=== PATIENT | female | born 1955 | race African-American/Black ===

== ENCOUNTER 2019-11-24 00:07 | Inpatient (IN) ==
[2019-11-24] MEDS ORDERED: SODIUM CHLORIDE 0.9% 1,000 ML IV STA (00:55)
[2019-11-24] MEDS ORDERED: KETOROLAC 30 MG/1 ML VIAL IV STA (00:55)
[2019-11-24] MEDS ORDERED: AZITHROMYCIN INJ 500 MG in SODIUM CHLORIDE 0.9% 250 ML IV STA (00:55)
[2019-11-24] MEDS ORDERED: methylPREDNISolone SOD SUC 125 MG/2 ML VIAL IV STA (00:55)
[2019-11-24] MEDS ORDERED: cefTRIAXone 1,000 MG in SODIUM CHLORIDE 0.9% 100 ML IV STA (01:36)
[2019-11-24 02:09] LABS: Basophils % 0.2 % (0.0-0.8); Hematocrit 34.3 VOL% (35.7-47.0); Hemoglobin 11.2 GM/DL (12.0-16.0); Hgb & Hct Comparison OK; Immature Granulocytes % 0.6 %; Immature Granulocytes Absolute 0.04 #; Immature Platelet Fraction 10.9 % (0.0-7.0); Lymphocytes # 1.8 10*3/uL (1.4-4.0); Lymphocytes % 27.1 % (21.3-54.2); Mean Corpuscular HGB Conc 32.7 GM/DL (32-36); Mean Corpuscular Hemoglobin 28 PG (27-34); Mean Corpuscular Volume 87.1 FL (87-102); Monocytes # 0.3 10*3/uL (0.11-0.8); Monocytes % 4.3 % (1.7-12.7); Neutrophils # 4.5 10*3/uL (1.4-7.4); Neutrophils % 67.8 % (38.7-73.9); Platelet Count 123 T/CUMM (130-400)
[2019-11-24 02:15] LABS: D-Dimer <= 0.5 MG/L FEU (<=0.5); PT Patient Result 10.4 SECS (9.8-11.9)
[2019-11-24 02:24] LABS: Alanine Aminotransferase 38 U/L (13-56); Albumin/Globulin Ratio 0.7 RATIO (1.1-2.2); Alkaline Phosphatase 73 U/L (45-117); Anion Gap 6.2 MMOL/L (5.0-15.0); Aspartate Amino Transferase 64 U/L (0-37); Blood Urea Nitrogen 11 MG/DL (7-18); C-Reactive Protein Inflamm 4.22 MG/DL (0-0.32); Carbon Dioxide 29 MMOL/L (21-32); Chloride 101 MMOL/L (98-107); Creatine Kinase MB < 1.0 NG/ML (0.5-3.6); Estimated Glom Filtration Rate 102 ML/MIN; Globulin 4.1 G/DL (2.3-3.5); Lactate Dehydrogenase 640 U/L (84-246); Osmolality,Calculated 265.7 MOS/KG (273-304); Potassium 5.2 MMOL/L (3.5-5.1); Sodium 131 MMOL/L (136-145); Troponin I < 0.015 NG/ML (0.00-0.045)
[2019-11-24] MEDS ORDERED: DOCUSATE SODIUM 100 MG CAPSULE PO PRN (04:25)
[2019-11-24] MEDS ORDERED: ONDANSETRON 4 MG/2 ML VIAL IV PRN (04:25)
[2019-11-24] MEDS ORDERED: DEXTROSE 50% 25 GM/50 ML VIAL IV PRN (04:25)
[2019-11-24] MEDS ORDERED: GLUCAGON 1 MG VIAL IM PRN (04:25)
[2019-11-24] MEDS ORDERED: hydrALAZINE 20 MG/1 ML VIAL IV PRN (04:25)
[2019-11-24] MEDS: SODIUM CHLORIDE 0.9% 1,000 ML IV SCH (05:05)
[2019-11-24] MEDS ORDERED: SODIUM POLYSTYRENE SULFATE 15 GM/60 ML BOTTLE PO ONE (09:00)
[2019-11-24] MEDS: CETIRIZINE 10 MG TABLET PO SCH (09:08)
[2019-11-24] MEDS: INSULIN LISPRO 100 UNIT/ML SUBCUT SCH ×4 (09:08→21:27)
[2019-11-24] MEDS: FAMOTIDINE 20 MG TABLET PO SCH ×2 (09:08→21:27)
[2019-11-24] MEDS: ENOXAPARIN 40 MG/0.4 ML SYRINGE SUBCUT SCH (09:08)
[2019-11-24 16:29] LABS: Apearance,Urine CLOUDY (Clear); Bilirubin,Urine Negative (Negative); Blood, Urine Negative (Negative); Glucose,Urine (UA) >=500 mg/dL (Negative); Ketones,Urine Negative (Negative); Nitrite,Urine Negative (Negative); Protein,Urine Negative; Urine Color Yellow (Yellow); Urine Specific Gravity 1.023 (1.001-1.035); Urine Urobilinogen < 2.0 EU/DL (0.2-1.0)
[2019-11-24 16:30] LABS: Culture Indicated,Urine Not Indicated
[2019-11-24] MEDS: ALBUTEROL INHALER 18 GM INH SCH ×2 (18:06)
[2019-11-24] MEDS: ACETAMINOPHEN 325 MG TABLET PO PRN (19:55)
[2019-11-25] MEDS ORDERED: AZITHROMYCIN INJ 500 MG in SODIUM CHLORIDE 0.9% 250 ML IV SCH
[2019-11-25] MEDS: ALBUTEROL INHALER 18 GM INH SCH ×4 (01:30→19:30)
[2019-11-25 07:06] LABS: Anion Gap 13.2 MMOL/L (5.0-15.0); Osmolality,Calculated 286.3 MOS/KG (273-304); Potassium 3.2 MMOL/L (3.5-5.1)
[2019-11-25 07:44] LABS: Basophils % 0.1 % (0.0-0.8); Hematocrit 35.4 VOL% (35.7-47.0); Hemoglobin 11.4 GM/DL (12.0-16.0); Hgb & Hct Comparison OK; Immature Granulocytes % 0.7 %; Immature Granulocytes Absolute 0.09 #; Lymphocytes # 2.4 10*3/uL (1.4-4.0); Lymphocytes % 19.3 % (21.3-54.2); Mean Corpuscular HGB Conc 32.2 GM/DL (32-36); Mean Corpuscular Hemoglobin 29 PG (27-34); Mean Corpuscular Volume 88.5 FL (87-102); Monocytes # 0.6 10*3/uL (0.11-0.8); Neutrophils # 9.1 10*3/uL (1.4-7.4); Neutrophils % 74.9 % (38.7-73.9); Platelet Count 211 T/CUMM (130-400)
[2019-11-25] MEDS: SODIUM CHLORIDE 0.9% 1,000 ML IV SCH ×3 (07:47→22:51)
[2019-11-25] MEDS: cefTRIAXone 1,000 MG in SYRINGE 1 EACH IV SCH (08:57)
[2019-11-25] MEDS: FAMOTIDINE 20 MG TABLET PO SCH ×2 (08:57→20:21)
[2019-11-25] MEDS: CETIRIZINE 10 MG TABLET PO SCH (08:57)
[2019-11-25] MEDS: AZITHROMYCIN 250 MG TABLET PO SCH (08:57)
[2019-11-25] MEDS: ENOXAPARIN 40 MG/0.4 ML SYRINGE SUBCUT SCH (08:57)
[2019-11-25] MEDS: INSULIN LISPRO 100 UNIT/ML SUBCUT SCH ×4 (08:57→20:22)
[2019-11-25] MEDS: ACETAMINOPHEN 325 MG TABLET PO PRN ×4 (08:57→20:21)
[2019-11-25] MEDS ORDERED: POTASSIUM CHLORIDE 20 MEQ TABLET PO ONE (12:00)
[2019-11-26] MEDS: ACETAMINOPHEN 325 MG TABLET PO PRN ×5 (00:37→20:59)
[2019-11-26] MEDS: ALBUTEROL INHALER 18 GM INH SCH ×4 (00:38→18:28)
[2019-11-26 05:56] LABS: Basophils % 0.1 % (0.0-0.8); Hematocrit 31.8 VOL% (35.7-47.0); Hemoglobin 10.3 GM/DL (12.0-16.0); Hgb & Hct Comparison OK; Immature Granulocytes % 0.8 %; Immature Granulocytes Absolute 0.07 #; Lymphocytes # 2.3 10*3/uL (1.4-4.0); Lymphocytes % 27.1 % (21.3-54.2); Mean Corpuscular HGB Conc 32.4 GM/DL (32-36); Mean Corpuscular Hemoglobin 28 PG (27-34); Mean Corpuscular Volume 86.6 FL (87-102); Monocytes # 0.4 10*3/uL (0.11-0.8); Neutrophils # 5.7 10*3/uL (1.4-7.4); Platelet Count 209 T/CUMM (130-400)
[2019-11-26 06:30] LABS: Anion Gap 8.1 MMOL/L (5.0-15.0); Osmolality,Calculated 279.5 MOS/KG (273-304); Potassium 3.1 MMOL/L (3.5-5.1)
[2019-11-26] MEDS: INSULIN LISPRO 100 UNIT/ML SUBCUT SCH ×4 (08:00→20:59)
[2019-11-26] MEDS: ENOXAPARIN 40 MG/0.4 ML SYRINGE SUBCUT SCH (09:00)
[2019-11-26] MEDS: FAMOTIDINE 20 MG TABLET PO SCH ×2 (09:29→20:59)
[2019-11-26] MEDS: CETIRIZINE 10 MG TABLET PO SCH (09:30)
[2019-11-26] MEDS: AZITHROMYCIN 250 MG TABLET PO SCH (09:30)
[2019-11-26] MEDS: cefTRIAXone 1,000 MG in SYRINGE 1 EACH IV SCH (09:30)
[2019-11-26] MEDS: SODIUM CHLORIDE 0.9% 1,000 ML IV SCH (12:23)
[2019-11-27] MEDS: ALBUTEROL INHALER 18 GM INH SCH ×4 (01:00→18:30)
[2019-11-27] MEDS: ACETAMINOPHEN 325 MG TABLET PO PRN ×2 (01:03→13:00)
[2019-11-27] MEDS: SODIUM CHLORIDE 0.9% 1,000 ML IV SCH (01:05)
[2019-11-27] MEDS: INSULIN LISPRO 100 UNIT/ML SUBCUT SCH ×4 (07:32→21:22)
[2019-11-27] MEDS: ENOXAPARIN 40 MG/0.4 ML SYRINGE SUBCUT SCH (08:22)
[2019-11-27] MEDS: cefTRIAXone 1,000 MG in SYRINGE 1 EACH IV SCH (08:23)
[2019-11-27] MEDS: AZITHROMYCIN 250 MG TABLET PO SCH (08:23)
[2019-11-27] MEDS: FAMOTIDINE 20 MG TABLET PO SCH ×2 (08:23→21:23)
[2019-11-27] MEDS: CETIRIZINE 10 MG TABLET PO SCH (08:27)
[2019-11-27 09:19] LABS: Basophils % 0.2 % (0.0-0.8); Eosinophils % 0.5 % (0.00-10.9); Hematocrit 33.5 VOL% (35.7-47.0); Hemoglobin 10.6 GM/DL (12.0-16.0); Hgb & Hct Comparison OK; Immature Granulocytes % 1.2 %; Lymphocytes # 2.4 10*3/uL (1.4-4.0); Lymphocytes % 29.3 % (21.3-54.2); Mean Corpuscular HGB Conc 31.6 GM/DL (32-36); Mean Corpuscular Hemoglobin 28 PG (27-34); Mean Corpuscular Volume 89.6 FL (87-102); Monocytes # 0.5 10*3/uL (0.11-0.8); Monocytes % 5.9 % (1.7-12.7); Neutrophils # 5.2 10*3/uL (1.4-7.4); Neutrophils % 62.9 % (38.7-73.9); Platelet Count 239 T/CUMM (130-400)
[2019-11-27 09:22] LABS: Anion Gap 8.2 MMOL/L (5.0-15.0); Osmolality,Calculated 276.4 MOS/KG (273-304); Potassium 3.2 MMOL/L (3.5-5.1)
[2019-11-27 09:45] LABS: Band Neutrophils 6 % (0-10); Lymphocytes 29 % (20-55); Metamyelocytes 1 %; Monocytes 4 % (2-15); Platelet Estimate Normal; Segmented Neutrophils 60 % (50-85); Total Cells Counted 100
[2019-11-27] MEDS ORDERED: POTASSIUM CHLORIDE 20 MEQ TABLET PO ONE (10:18)
[2019-11-27] MEDS: LISINOPRIL/HCTZ 20-12.5 MG TABLET PO SCH (10:40)
[2019-11-27] MEDS: ATORVASTATIN 40 MG TABLET PO SCH (10:40)
[2019-11-27] MEDS: amLODIPine 5 MG TABLET PO SCH (10:40)
[2019-11-27] MEDS: ASPIRIN EC 81 MG TABLET PO SCH (10:40)
[2019-11-27] MEDS: GABAPENTIN 300 MG CAPSULE PO SCH ×2 (16:15→21:23)
[2019-11-27] MEDS: metFORMIN 500 MG TABLET PO SCH (21:23)
[2019-11-28] MEDS: ALBUTEROL INHALER 18 GM INH SCH ×4 (00:54→18:16)
[2019-11-28 05:55] LABS: Basophils % 0.1 % (0.0-0.8); Eosinophils # 0.1 10*3/uL (0.0-0.87); Hematocrit 32.5 VOL% (35.7-47.0); Hemoglobin 10.6 GM/DL (12.0-16.0); Hgb & Hct Comparison OK; Immature Granulocytes % 1.3 %; Immature Granulocytes Absolute 0.09 #; Lymphocytes # 2.5 10*3/uL (1.4-4.0); Lymphocytes % 36.2 % (21.3-54.2); Mean Corpuscular HGB Conc 32.6 GM/DL (32-36); Mean Corpuscular Hemoglobin 28 PG (27-34); Mean Corpuscular Volume 86.9 FL (87-102); Monocytes # 0.6 10*3/uL (0.11-0.8); Monocytes % 9.2 % (1.7-12.7); Neutrophils # 3.6 10*3/uL (1.4-7.4); Neutrophils % 52.2 % (38.7-73.9); Platelet Count 275 T/CUMM (130-400)
[2019-11-28 06:02] LABS: Anion Gap 8.2 MMOL/L (5.0-15.0); Osmolality,Calculated 277.5 MOS/KG (273-304); Potassium 3.2 MMOL/L (3.5-5.1)
[2019-11-28 06:57] LABS: Platelet Estimate Normal
[2019-11-28] MEDS: amLODIPine 5 MG TABLET PO SCH (08:43)
[2019-11-28] MEDS: ATORVASTATIN 40 MG TABLET PO SCH (08:43)
[2019-11-28] MEDS: FAMOTIDINE 20 MG TABLET PO SCH ×2 (08:43→21:42)
[2019-11-28] MEDS: LISINOPRIL/HCTZ 20-12.5 MG TABLET PO SCH (08:43)
[2019-11-28] MEDS: metFORMIN 500 MG TABLET PO SCH ×2 (08:43→21:42)
[2019-11-28] MEDS: ASPIRIN EC 81 MG TABLET PO SCH (08:43)
[2019-11-28] MEDS: AZITHROMYCIN 250 MG TABLET PO SCH (08:44)
[2019-11-28] MEDS: INSULIN LISPRO 100 UNIT/ML SUBCUT SCH ×4 (08:44→21:41)
[2019-11-28] MEDS: ENOXAPARIN 40 MG/0.4 ML SYRINGE SUBCUT SCH (08:44)
[2019-11-28] MEDS: CETIRIZINE 10 MG TABLET PO SCH (08:44)
[2019-11-28] MEDS: cefTRIAXone 1,000 MG in SYRINGE 1 EACH IV SCH (08:44)
[2019-11-28] MEDS: GABAPENTIN 300 MG CAPSULE PO SCH ×3 (08:45→21:42)
[2019-11-28] MEDS ORDERED: POTASSIUM CHLORIDE 20 MEQ/15 ML UDCUP PO ONE (16:46)
[2019-11-28] MEDS ORDERED: ZINC SULFATE 220 MG CAPSULE PO SCH (17:00)
[2019-11-28] MEDS: ZINC SULFATE 220 MG CAPSULE PO SCH ×2 (17:45→18:15)
[2019-11-28] MEDS: DEXAMETHASONE 4 MG TABLET PO SCH (17:45)
[2019-11-28] MEDS: ASCORBIC ACID 500 MG TABLET PO SCH (17:45)
[2019-11-29] MEDS: ALBUTEROL INHALER 18 GM INH SCH ×4 (01:10→18:28)
[2019-11-29 06:29] LABS: Basophils % 0.1 % (0.0-0.8); Hematocrit 35.5 VOL% (35.7-47.0); Hemoglobin 11.5 GM/DL (12.0-16.0); Hgb & Hct Comparison OK; Immature Granulocytes % 1.5 %; Immature Granulocytes Absolute 0.11 #; Lymphocytes # 1.4 10*3/uL (1.4-4.0); Lymphocytes % 18.5 % (21.3-54.2); Mean Corpuscular HGB Conc 32.4 GM/DL (32-36); Mean Corpuscular Hemoglobin 28 PG (27-34); Mean Corpuscular Volume 87.2 FL (87-102); Monocytes # 0.2 10*3/uL (0.11-0.8); Monocytes % 2.4 % (1.7-12.7); Neutrophils # 5.8 10*3/uL (1.4-7.4); Neutrophils % 77.5 % (38.7-73.9)
[2019-11-29 06:33] LABS: Platelet Count 350 T/CUMM (130-400)
[2019-11-29 06:35] LABS: Anion Gap 8.8 MMOL/L (5.0-15.0); Magnesium 1.8 MG/DL (1.8-2.4); Osmolality,Calculated 279.7 MOS/KG (273-304); Potassium 3.8 MMOL/L (3.5-5.1)
[2019-11-29 06:53] LABS: Hypochromasia 1+; Lymphocytes 17 % (20-55); Monocytes 6 % (2-15); Platelet Estimate Adequate; Segmented Neutrophils 77 % (50-85); Total Cells Counted 100
[2019-11-29] MEDS: INSULIN LISPRO 100 UNIT/ML SUBCUT SCH ×4 (09:31→21:08)
[2019-11-29] MEDS: GABAPENTIN 300 MG CAPSULE PO SCH ×3 (09:32→21:05)
[2019-11-29] MEDS: LISINOPRIL/HCTZ 20-12.5 MG TABLET PO SCH (09:32)
[2019-11-29] MEDS: ENOXAPARIN 40 MG/0.4 ML SYRINGE SUBCUT SCH (09:32)
[2019-11-29] MEDS: CETIRIZINE 10 MG TABLET PO SCH (09:33)
[2019-11-29] MEDS: amLODIPine 5 MG TABLET PO SCH (09:33)
[2019-11-29] MEDS: ASPIRIN EC 81 MG TABLET PO SCH (09:33)
[2019-11-29] MEDS: FAMOTIDINE 20 MG TABLET PO SCH ×2 (09:33→21:05)
[2019-11-29] MEDS: metFORMIN 500 MG TABLET PO SCH ×2 (09:33→21:05)
[2019-11-29] MEDS: ATORVASTATIN 40 MG TABLET PO SCH (09:33)
[2019-11-29] MEDS: DEXAMETHASONE 4 MG TABLET PO SCH (09:34)
[2019-11-29] MEDS: ASCORBIC ACID 500 MG TABLET PO SCH ×2 (10:24→21:05)
[2019-11-29] MEDS ORDERED: cefTRIAXone 1,000 MG VIAL IM ONE (16:30)
[2019-11-30] MEDS: ALBUTEROL INHALER 18 GM INH SCH ×5 (00:55→21:00)
[2019-11-30 06:10] LABS: Basophils % 0.1 % (0.0-0.8); Hemoglobin 11.1 GM/DL (12.0-16.0); Hgb & Hct Comparison OK; Immature Granulocytes % 1.8 %; Immature Granulocytes Absolute 0.25 #; Lymphocytes # 2.5 10*3/uL (1.4-4.0); Lymphocytes % 17.9 % (21.3-54.2); Mean Corpuscular HGB Conc 33.6 GM/DL (32-36); Mean Corpuscular Hemoglobin 29 PG (27-34); Mean Corpuscular Volume 85.3 FL (87-102); Monocytes % 7.4 % (1.7-12.7); Neutrophils % 72.8 % (38.7-73.9); Platelet Count 375 T/CUMM (130-400)
[2019-11-30 06:28] LABS: Anion Gap 9.8 MMOL/L (5.0-15.0); Magnesium 1.9 MG/DL (1.8-2.4); Osmolality,Calculated 277.8 MOS/KG (273-304); Potassium 3.8 MMOL/L (3.5-5.1)
[2019-11-30 06:40] LABS: VLDL CHOLESTEROL 17.2 MG/DL
[2019-11-30] MEDS: CETIRIZINE 10 MG TABLET PO SCH (08:30)
[2019-11-30] MEDS: INSULIN LISPRO 100 UNIT/ML SUBCUT SCH ×4 (08:30→21:00)
[2019-11-30] MEDS: ASCORBIC ACID 500 MG TABLET PO SCH ×2 (08:30→21:00)
[2019-11-30] MEDS: DEXAMETHASONE 4 MG TABLET PO SCH (08:30)
[2019-11-30] MEDS: FAMOTIDINE 20 MG TABLET PO SCH ×2 (08:30→21:00)
[2019-11-30] MEDS: metFORMIN 500 MG TABLET PO SCH ×2 (08:30→21:00)
[2019-11-30] MEDS: LISINOPRIL/HCTZ 20-12.5 MG TABLET PO SCH (08:30)
[2019-11-30] MEDS: amLODIPine 5 MG TABLET PO SCH (08:30)
[2019-11-30] MEDS: ASPIRIN EC 81 MG TABLET PO SCH (08:30)
[2019-11-30] MEDS: ENOXAPARIN 40 MG/0.4 ML SYRINGE SUBCUT SCH (08:30)
[2019-11-30] MEDS: ATORVASTATIN 40 MG TABLET PO SCH (08:30)
[2019-11-30] MEDS: GABAPENTIN 300 MG CAPSULE PO SCH ×4 (08:30→21:00)
[2019-11-30] MEDS: ZINC SULFATE 220 MG CAPSULE PO SCH (17:39)
[2019-11-30] MEDS ORDERED: INSULIN GLARGINE 100 UNIT/ML SUBCUT SCH (21:00)
[2019-12-01 05:50] LABS: Basophils % 0.2 % (0.0-0.8); Hematocrit 33.8 VOL% (35.7-47.0); Hgb & Hct Comparison OK; Immature Granulocytes % 2.2 %; Immature Granulocytes Absolute 0.28 #; Lymphocytes # 2.9 10*3/uL (1.4-4.0); Lymphocytes % 22.9 % (21.3-54.2); Mean Corpuscular HGB Conc 32.5 GM/DL (32-36); Mean Corpuscular Hemoglobin 28 PG (27-34); Mean Corpuscular Volume 87.3 FL (87-102); Monocytes # 0.9 10*3/uL (0.11-0.8); Monocytes % 7.3 % (1.7-12.7); Neutrophils # 8.5 10*3/uL (1.4-7.4); Neutrophils % 67.4 % (38.7-73.9); Platelet Count 426 T/CUMM (130-400)
[2019-12-01] MEDS: ALBUTEROL INHALER 18 GM INH SCH (06:15)
[2019-12-01 06:21] LABS: Anion Gap 7.9 MMOL/L (5.0-15.0); Magnesium 1.8 MG/DL (1.8-2.4); Osmolality,Calculated 278.7 MOS/KG (273-304); Potassium 3.9 MMOL/L (3.5-5.1)
[2019-12-01 07:53] VITALS: BP 145/87
[2019-12-01] MEDS: ENOXAPARIN 40 MG/0.4 ML SYRINGE SUBCUT SCH (09:04)
[2019-12-01] MEDS: INSULIN LISPRO 100 UNIT/ML SUBCUT SCH (09:05)
[2019-12-01] MEDS: ASCORBIC ACID 500 MG TABLET PO SCH (09:05)
[2019-12-01] MEDS: metFORMIN 500 MG TABLET PO SCH (09:06)
[2019-12-01] MEDS: ASPIRIN EC 81 MG TABLET PO SCH (09:06)
[2019-12-01] MEDS: DEXAMETHASONE 4 MG TABLET PO SCH (09:06)
[2019-12-01] MEDS: LISINOPRIL/HCTZ 20-12.5 MG TABLET PO SCH (09:07)
[2019-12-01] MEDS: CETIRIZINE 10 MG TABLET PO SCH (09:07)
[2019-12-01] MEDS: amLODIPine 5 MG TABLET PO SCH (09:07)
[2019-12-01] MEDS: ATORVASTATIN 40 MG TABLET PO SCH (09:07)
[2019-12-01] MEDS: GABAPENTIN 300 MG CAPSULE PO SCH (09:08)
[2019-12-01] MEDS: FAMOTIDINE 20 MG TABLET PO SCH (10:08)
== END 2019-12-01 11:00 | disposition home or self-care (01) ==
LOC: N.ED 00:07 → N.EDINP 03:16 → SUATTDRO 03:16 → N.2E 03:41
PROVIDERS: ADMIT Family Medicine; ATTEND Internal Medicine